=== PATIENT | female | born 1955 | race Caucasian/White ===

== ENCOUNTER → 2016-11-14 | Outpatient (CLI) | payer OTHER ==
[~2016-11-14] MED LIST: DENOSUMAB 60 MG/ML 1 ML SYRINGE SQ NR
[2016-11-14 10:16] VITALS: BP 138/73; PULSE 67; RESP 16; TEMP 98.3
== END | disposition home or self-care (01) ==
LOC: PROCWHC3 09:59
PROVIDERS: ATTEND Family Medicine
DX: M81.0 Age-related osteoporosis without current pathological fracture (principal)
CPT/HCPCS: 96372; J0897

== ENCOUNTER → 2017-05-21 | Outpatient (CLI) | payer OTHER ==
[~2017-05-21] MED LIST changes: -DENOSUMAB 60 MG/ML 1 ML SYRINGE SQ NR; +DENOSUMAB 60 MG/ML 1 ML SYRINGE SQ ONE
[2017-05-21 14:38] VITALS: BP 123/68; PULSE 73; RESP 16; TEMP 98.6
== END ==
LOC: PROCWHC3 14:24
PROVIDERS: ATTEND Family Medicine
DX: M81.0 Age-related osteoporosis without current pathological fracture (principal)
CPT/HCPCS: 96372; J0897

== ENCOUNTER → 2017-09-04 | Outpatient (CLI) | payer OTHER ==
--- NOTE | 2017-09-04 10:35 | CTL ---
EXAMINATION TYPE: CT Low Dose Lung DATE OF EXAM ORDERED: 09/04/2017 HISTORY: Personal history of tobacco abuse. Lung cancer screening CT DLP: 80.[address] CTDI: 2.3 mGy Automated exposure control for dose reduction was used. SCREENING VISIT: First COMPARISON: CT chest dated 01/26/2010 TECHNIQUE: Low dose computed tomography scan was performed through the chest at 1 mm thick sections a nd reconstructed images in the coronal plane at [address] DIAGNOSTIC QUALITY: Satisfactory FINDINGS: LUNG NODULES: There is a 2 mm solid subpleural right upper lobe pulmonary nodule on series 4 image 111. This is not present on the prior exam of 2009. LUNGS: COPD: Severity: None Fibrosis: Severity: None Lymph nodes: No enlarged lower mediastinal nodes or hilar nodes Other findings: Minimal bibasilar subsegmental atelectasis. RIGHT PLEURAL SPACE: Effusion: None Calcification: None Thickening: None Pneumothorax: None LEFT PLEURAL SPACE: Effusion: None Calcification: None Thickenin.1 cm area of pleural thickening within the left midlung along the upper lobe on series 4 image 121. Small Bochdalek hernia is also present. Pneumothorax: None HEART: Heart Size: Nonenlarged Coronary calcification: None Pericardial effusion: None OTHER FINDINGS: Upper abdomen: Small exophytic left upper pole renal cyst measuring 1 mm and second 8 mm renal lesion that is too small to accurately characterize are seen. Bony thorax: Surgically fixated right previous clavicular fracture. Nonspecific sclerotic focus is se en of the upper thoracic vertebrae approximately T3 measuring 6 mm. Supraclavicular region: No adenopathy Other: Within the superior mediastinum between the brachiocephalic and carotid arteries there is a 1. 9 x 1.4 x 0.9 cm soft tissue density on series 6 image 111 and series 3 image 52. IMPRESSION: 1. Lung RADS 2S-Solitary right 2 mm solid pulmonary nodule-Nodule with a very low likelihood of becom ing a clinically active cancer due to size. 2. Superior mediastinal 1.9 cm soft tissue mass. Considerations are for lymphadenopathy, thymoma, or less likely thymic hyperplasia given its somewhat granular configuration. No distinct continuity with a thyroid gland to suggest thyroid lesion. PET CT could be performed for further evaluation. FOLLOW UP CT CHEST RECOMMENDATION: Continued annual screening with low dose CT in 12 months is [address] LUNG RAD: 2S
== END | disposition home or self-care (01) ==
LOC: RADCTMAIN 09:31
PROVIDERS: ATTEND Family Medicine
DX: Z12.2 Encounter for screening for malignant neoplasm of respiratory organs (principal); R91.1 Solitary pulmonary nodule; R91.8 Other nonspecific abnormal finding of lung field; Z87.891 Personal history of nicotine dependence

== ENCOUNTER → 2017-10-06 | Outpatient (CLI) | payer OTHER ==
--- NOTE | 2017-10-07 15:02 | PE ---
EXAMINATION TYPE: PET CT fusion skull to thigh DATE OF EXAM: 10/06/2017 COMPARISON: Low-dose CT 09/04/2017 Prior PET/CT: None HISTORY: Solitary pulmonary nodule, right upper lobe pulmonary nodule, pleural thickening left midlun g TECHNIQUE: Following the intravenous administration of 14.056 mCi of F-18 FDG, whole body images are performed from the skull base to the midthigh. Images are reviewed on the computer in the coronal, axial, and sagittal planes. Reconstructed rotating images are created on independent workstation and reviewed on the computer. A localization and attenuation correction CT is performed in conjunction with the PET scan. DLP: 358.8 mGycm SCAN: Initial Blood glucose: 83 mg/dL Average Mediastinum SUV: 1.75 Average Liver SUV: 2.91 FINDINGS: NECK: No suspicious uptake. THORAX: No suspicious uptake. Pleural thickening does not have abnormal uptake. The tiny 2 mm nodule is normal uptake. However, at this small size abnormality is unlikely to be identified. Typically nodules need to be larger than 8 mm for accurate evaluation. No suspicious uptake within the superior mediastinal density is evident. The SUV value is 0.99. Image 51. ABDOMEN: No abnormal uptake PELVIS: No abnormal uptake OSSEOUS STRUCTURES: No abnormal uptake LOCALIZATION CT: No suspicious findings. Renal cyst is present on the left. Bilateral breast prosthes es are present. COMPARISON: Superior mediastinal nodule is less distinct but remains present with elevation CT IMPRESSION: 1. No suspicious changes. 2. Recommend monitoring with low-dose CT chest
== END | disposition home or self-care (01) ==
LOC: RADPETMAIN 12:00
PROVIDERS: ATTEND Family Medicine
DX: R91.8 Other nonspecific abnormal finding of lung field (principal)
CPT/HCPCS: 78815; A9552

== ENCOUNTER → 2018-04-01 | Outpatient (CLI) | payer OTHER ==
[2018-04-01 12:06] LABS: Glucose 2 Hour 93 mg/dL
== END | disposition home or self-care (01) ==
LOC: LABWHC1 07:20
PROVIDERS: ATTEND Family Medicine
DX: E16.2 Hypoglycemia, unspecified (principal)
CPT/HCPCS: 36415; 82947; 82950

== ENCOUNTER → 2018-09-20 | Outpatient (CLI) | payer OTHER ==
--- NOTE | 2018-09-24 09:38 | MM ---
Reason for exam: screening (asymptomatic). Last mammogram was performed 2 years and 2 months ago. History: Patient is postmenopausal and history of other cancer. Family history of breast cancer in maternal aunt. Retro-pectoral saline implants in both breasts, 1984. Took hormonal contraceptives for 5 years beginning at age 19. Physical Findings: A clinical breast exam by your physician is recommended on an annual basis and results should be correlated with mammographic findings. MG Screening Mammo Implant/CAD Bilateral CC, MLO, and ID view(s) were taken. Prior study comparison: July 20, 2016, bilateral MG screening mammo implant/CAD. June 29, 2015, bilateral MG screening mammo implant/CAD. There are scattered fibroglandular densities. There is chronic nodularity in the right breast. Retropectoral silicone implants. No significant changes when compared with prior studies. ASSESSMENT: Benign, BI-RAD 2 RECOMMENDATION: Routine screening mammogram of both breasts in 1 year.
== END ==
LOC: RADMAMWWP 14:06
PROVIDERS: ATTEND Family Medicine
DX: Z12.31 Encounter for screening mammogram for malignant neoplasm of breast (principal)
CPT/HCPCS: 77067

== ENCOUNTER → 2018-10-11 | Outpatient (CLI) | payer OTHER ==
--- NOTE | 2018-10-11 10:24 | US ---
EXAMINATION TYPE: US carotid duplex BILAT DATE OF EXAM: 10/11/2018 COMPARISON: NONE CLINICAL HISTORY: R41.0 Episode of confusion. EXAM MEASUREMENTS: RIGHT: Peak Systolic Velocity (PSV) cm/sec ----- Right CCA: 86.7 ----- Right ICA: 69.0 ----- Right ECA: 109.4 ICA/CCA ratio: 0.8 RIGHT: End Diastole cm/sec ----- Right CCA: 34.9 ----- Right ICA: 18.4 ----- Right ECA: 18.4 LEFT: Peak Systolic Velocity (PSV) cm/sec ----- Left CCA: 70.2 ----- Left ICA: 74.5 ----- Left ECA: 72.0 ICA/CCA ratio: 1.1 LEFT: End Diastole cm/sec ----- Left CCA: 26.0 ----- Left ICA: 37.0 ----- Left ECA: 16.3 VERTEBRALS (direction of flow): Right Vertebral: Antegrade Left Vertebral: Antegrade Rhythm: Normal Grayscale, color Doppler, spectral Doppler imaging performed of the carotid arteries. Minimal amount of plaque visualized bilaterally. No elevated velocities, no significant stenosis. Waveform analysis does not show significant stenosis of the proximal internal carotid arteries. IMPRESSION: No hemodynamic significant stenosis of the proximal internal carotid arteries bilaterall y by Doppler criteria, an indirect measurement of carotid stenosis
--- NOTE | 2018-10-11 10:42 | MR ---
MR brain without contrast HISTORY: Episode of confusion Multiplanar multisequence imaging through the brain No comparisons There is no restricted diffusion. The corpus callosum, pituitary, cervical medullary junction, cerebe llopontine angles are normal. There are normal vascular flow voids. Mild inflammatory change noted in the mastoid air cells on the right. Orbits show symmetric appearance. No hemorrhage or hydrocephalus . There are scattered hyperintensities on inversion recovery and T2-weighted sequences within the per iventricular and subcortical white matter, approximately 5 lesions are present. Mild inflammatory pamela nge present in the ethmoid air cells. Minimal inferior cerebellar tonsillar ectopia is noted. There i s mild cortical atrophy. IMPRESSION: Nonspecific white matter demyelination. Sinus disease, correlate to exclude mastoiditis. Additional findings above.
--- NOTE | 2018-10-11 13:15 | ECHOF ---
Referral Reason:US then MRI then ECHO, teresa sweater green pants MEASUREMENTS -------- HEIGHT: 157.5 cm WEIGHT: 68.0 kg BP: 115/75 RVIDd: 3.4 cm (< 3.3) IVSd: 0.9 cm (0.6 - 1.1) LVIDd: 3.5 cm (3.9 - 5.3) LVPWd: 0.9 cm (0.6 - 1.1) IVSs: 1.5 cm LVIDs: 2.4 cm LVPWs: 1.4 cm LA Diam: 3.1 cm (2.7 - 3.8) LAESV Index (A-L): 21.88 ml/m Ao Diam: 2.6 cm (2.0 - 3.7) AV Cusp: 1.9 cm (1.5 - 2.6) MV EXCURSION: 14.100 mm (> 18.000) MV EF SLOPE: 108 mm/s (70 - 150) EPSS: 0.2 cm MV E Chester: 0.71 m/s MV DecT: 275 ms MV A Chester: 0.60 m/s MV E/A Ratio: 1.17 RAP: 5.00 mmHg RVSP: 28.65 mmHg FINDINGS -------- Sinus rhythm. This was a technically good study. The left ventricular size is normal. Left ventricular wall thickness is normal. Overall left vent ricular systolic function is normal with, an EF between 60 - 65 %. The right ventricle is mildly enlarged. Normal LA size by volume 22+/-6 ml/m2. The right atrium is normal in size. There is mild aortic valve sclerosis. The mitral valve is normal. There is trace mitral regurgitation. Mild tricuspid regurgitation present. Right ventricular systolic pressure is normal at < 35 mmHg. There is no pulmonic regurgitation present. The aortic root size is normal. Normal inferior vena cava with normal inspiratory collapse consistent with estimated right atrial pre ssure of 5 mmHg. There is no pericardial effusion. CONCLUSIONS -------- 1. Sinus rhythm. 2. This was a technically good study. 3. The left ventricular size is normal. 4. Left ventricular wall thickness is normal. 5. Overall left ventricular systolic function is normal with, an EF between 60 - 65 %. 6. The right ventricle is mildly enlarged. 7. Normal LA size by volume 22+/-6 ml/m2. 8. The right atrium is normal in size. 9. There is mild aortic valve sclerosis. 10. The mitral valve is normal. 11. There is trace mitral regurgitation. 12. Mild tricuspid regurgitation present. 13. Right ventricular systolic pressure is normal at < 35 mmHg. 14. There is no pulmonic regurgitation present. 15. The aortic root size is normal. 16. Normal inferior vena cava with normal inspiratory collapse consistent with estimated right atrial pressure of 5 mmHg. 17. There is no pericardial effusion. BOTANICAL TECHNICAL OFFICER: Jayda Trivedi RDCS
== END | disposition home or self-care (01) ==
LOC: RADUSMAIN 08:52
PROVIDERS: ATTEND Psychiatry & Neurology Neurology
DX: G37.9 Demyelinating disease of central nervous system, unspecified (principal); G31.9 Degenerative disease of nervous system, unspecified; R41.0 Disorientation, unspecified; I07.1 Rheumatic tricuspid insufficiency; I35.8 Other nonrheumatic aortic valve disorders
CPT/HCPCS: 70551; 93306; 93880

== ENCOUNTER → 2019-01-22 | Outpatient (CLI) | payer OTHER ==
[~2019-01-22] MED LIST changes: +DENOSUMAB 60 MG/ML 1 ML SYRINGE SQ NR; -DENOSUMAB 60 MG/ML 1 ML SYRINGE SQ ONE
[2019-01-22 10:26] VITALS: BP 132/68; PULSE 56; RESP 16; TEMP 98.1
== END | disposition home or self-care (01) ==
LOC: PROCWHC3 09:50
PROVIDERS: ATTEND Family Medicine
DX: M81.0 Age-related osteoporosis without current pathological fracture (principal)
CPT/HCPCS: 96372; J0897

== ENCOUNTER 2019-07-09 12:17 | Emergency (ER) | payer MEDICARE, OTHER ==
[2019-07-09 12:24] VITALS: BP 149/88; PULSE 77; RESP 18; TEMP 98
[2019-07-09] MEDS ORDERED: PROPARACAINE 0.5% OPHTH DROPS 15 ML BTL LEFT EYE STA (12:33)
--- NOTE | 2019-07-09 12:38 | ED ---
Skin/Abscess/FB HPI - General Chief complaint: Skin/Abscess/Foreign Body Stated complaint: Eye issues Time Seen by Provider: 07/09/19 12:27 Source: patient Mode of arrival: ambulatory Limitations: no limitations - History of Present Illness Initial comments: Patient is a 64-year-old female presenting to the emergency Department with complaints of ALLERGIC reaction to her eyelash extensions. Patient states she had been placed 2 days ago and then she noticed redness and swelling that started a few hours later. Patient went to an urgent care yesterday and received a steroid injection as well as started on a Medrol Dosepak and antibiotic eyedrops. Patient states she comes today because her symptoms are still progressing and she now believes she has something in her left eye. Both eyes are red, swollen and have been draining clear fluids. Patient states she is going to get them removed tonight. Patient states she has had these before and has not had this reaction. Patient denies any fever or chills. Patient has no other complaints at this time. Upon arrival to the ER, vital signs are stable. - Related Data Home Medications Medication Instructions Recorded Confirmed Calcium Carbonate/Vitamin D3 1 each PO DAILY 11/14/16 01/22/19 [Calcium 600-Vit D3 2,500 Sftgl] Citalopram Hydrobromide [CeleXA] 20 mg PO DAILY 11/14/16 01/22/19 Multivitamins, Thera [Multivitamin 1 tab PO DAILY 11/14/16 01/22/19 (formulary)] Biotin 5,000 mcg PO DAILY 05/21/17 01/22/19 Cholecalciferol (Vitamin D3) 2,000 unit PO DAILY 05/21/17 01/22/19 [Vitamin D3] Odell-3 Fatty Acids/Fish Oil [Fish 1 each PO DAILY 05/21/17 01/22/19 Oil 1,000 mg Softgel] Ubidecarenone [Co Q-10] 100 mg PO DAILY 05/21/17 01/22/19 Allergies Allergy/AdvReac Type Severity Reaction Status Date / Time morphine AdvReac Nausea & Verified 07/09/19 12:24 Vomiting Review of Systems ROS Statement: Those systems with pertinent positive or pertinent negative responses have been documented in the HPI. ROS Other: All systems not noted in ROS Statement are negative. Past Medical History Past Medical History: Hyperlipidemia Additional Past Medical History / Comment(s): osteoporosis History of Any Multi-Drug Resistant Organisms: None Reported Additional Past Surgical History / Comment(s): Right skapula fx and surgery Past Anesthesia/Blood Transfusion Reactions: No Reported Reaction Past Psychological History: No Psychological Hx Reported Smoking Status: Never smoker Past Alcohol Use History: None Reported Past Drug Use History: None Reported General Exam - General Exam Comments Initial Comments: GENERAL: Well-appearing, well-nourished and in no acute distress. HEAD: Atraumatic, normocephalic. EYES: Pupils equal round and reactive to light, extraocular movements intact. Bilateral eyelids are erythematous, swollen. Both eyes have active clear/yellow drainage with some dried greenish crusting. ENT: TMs normal, nares patent, oropharynx clear without exudates. Moist mucous membranes. NECK: Normal range of motion, supple without lymphadenopathy or JVD. LUNGS: Breath sounds clear to auscultation bilaterally and equal. No wheezes rales or rhonchi. HEART: Regular rate and rhythm without murmurs, rubs or gallops. ABDOMEN: Soft, nontender, normoactive bowel sounds. : Deferred EXTREMITIES: Normal range of motion, no pitting or edema. No clubbing or cyanosis. NEUROLOGICAL: Normal speech, normal gait. SKIN: Warm, Dry, normal turgor, no rashes or lesions noted. Limitations: no limitations Course Vital Signs 07/09/19 12:19 Temperature 98.0 F Pulse Rate 77 Respiratory 18 Rate Blood Pressure 149/88 O2 Sat by Pulse 98 Oximetry Medical Decision Making - Medical Decision Making Patient is 64-year-old female presenting with bilateral swelling and edematous eyelids secondary from eyelash extensions. Patient was started on Medrol Dosepak yesterday as well as antibiotic eyedrops. Patient will have the eye extensions removed today. Patient does have a very mild abrasion to her left cornea seen with fluorescein. Proparacaine did help with her symptoms. Patient will continue with steroid Dosepak, anabolic eyedrops and antihistamine. Patient is stable for discharge at this time. Patient will follow up with ophthalmology in 1 to 3 days. Return parameters were discussed with the patient and she verbalized understanding. Disposition Clinical Impression: Allergic conjunctivitis, bilateral, Corneal abrasion Disposition: HOME SELF-CARE Condition: Stable Instructions (If sedation given, give patient instructions): Conjunctivitis (ED) Additional Instructions: Please return to the Emergency Department if symptoms worsen or any other concerns. Continue with oral steroids, antihistamine, antibiotic eye drops that were prescribed yesterday. Follow up with your interventional physician in 1-3 days. Have fake eyelashes removed today as discussed. Is patient prescribed a controlled substance at d/c from ED?: No Referrals: Frankie Loving MD [Primary Care Provider] - 1-2 days
== END 2019-07-09 13:14 | disposition home or self-care (01) ==
LOC: EC 12:17
DX: H10.13 Acute atopic conjunctivitis, bilateral (principal); S05.02XA Injury of conjunctiva and corneal abrasion without foreign body, left eye, initial encounter; M81.0 Age-related osteoporosis without current pathological fracture; E78.5 Hyperlipidemia, unspecified; Z79.899 Other long term (current) drug therapy; Z88.5 Allergy status to narcotic agent; X58.XXXA Exposure to other specified factors, initial encounter
CPT/HCPCS: 99283